=== PATIENT | female | born 1995 | race African-American/Black ===

== ENCOUNTER 2022-08-24 10:16 | Outpatient (CLI) | payer OTHER | END 2022-08-24 10:17 | disposition home or self-care (01) | LOC: CSHULT 10:16 | PROVIDERS: ATTEND Nurse Practitioner Women's Health | DX: Z34.82 Encounter for supervision of other normal pregnancy, second trimester (principal) | CPT/HCPCS: 76805 ==

== ENCOUNTER 2022-12-17 14:56 | Inpatient (IN) | payer OTHER ==
[2022-12-17] MEDS ORDERED: hydrALAZINE 20 MG/ML VIAL SLOW IVP PRN ×2 (16:01→16:22)
[2022-12-17] MEDS ORDERED: Lidocaine 1% (PF) 30 ML VIAL SC PRN (16:20)
[2022-12-17] MEDS ORDERED: Ibuprofen 800 MG TAB PO PRN (16:20)
[2022-12-17] MEDS ORDERED: Ondansetron PF 4 MG/2 ML Vial IVP PRN (16:22)
[2022-12-17] MEDS ORDERED: Misoprostol 200 MCG TAB PR PRN (16:22)
[2022-12-17] MEDS ORDERED: Promethazine HCl 25 MG/ML VIAL IM PRN (16:22)
[2022-12-17] MEDS ORDERED: Carboprost 250 MCG/ML AMP IM PRN (16:22)
[2022-12-17] MEDS ORDERED: Diphenoxylate HCl/Atropine Tablet PO PRN (16:22)
[2022-12-17] MEDS ORDERED: Methylergonovine 0.2 MG/ML VIAL IM PRN (16:22)
[2022-12-17] MEDS ORDERED: Acetaminophen 500 MG TAB PO PRN (16:22)
[2022-12-17] MEDS ORDERED: Tranexamic Acid 1,000 MG/10 ML VIAL IVP PRN (16:22)
[2022-12-17] MEDS ORDERED: Lactated Ringer's 1,000 ML IV SCH (16:30)
[2022-12-17] MEDS ORDERED: NS w/ Oxytocin 30 units 500 ML IV SCH ×2 (16:30)
[2022-12-17] MEDS ORDERED: Penicillin G Potassium 5 MILL.UNITS in Sodium Chloride 0.9% 100 ML IVPB SCH (16:30)
[2022-12-17] MEDS ORDERED: Penicillin G Potassium 5 MILL.UNITS VIAL ONE (17:38)
[2022-12-17 17:43] LABS: Hemoglobin 8.9 g/dL (12.0-15.5); Mean Corpuscular HGB CONC 33.3 g/dL (32.0-36.0); Mean Corpuscular Volume 89.9 fl (81.6-98.3); Mean Platelet Volume 11.5 fl (7.4-10.4); Platelet Count 195 10x3/uL (150-450); RBC Distribution Width 12.5 % (11.5-14.5); Red Blood Cell (RBC) Count 2.97 10x6/uL (3.90-5.03); White Blood Cell (WBC) Count 8.1 10x3/uL (3.5-10.5)
[2022-12-17 18:38] LABS: HBSAg Index 0.19 S/CO (0-0.99); Hep B Surf Ag - L&D Non-Reactive S/CO (NonReactive); Syphilis Antibody Nonreactive (Nonreactive); Syphilis Antibody Index 0.04 S/CO (<1.00 Non-Reactive)
[2022-12-17] MEDS ORDERED: fentaNYL 50 mcg/mL 1 mL Vial SLOW IVP PRN (20:00)
[2022-12-17] MEDS ORDERED: fentaNYL 50 mcg/mL 1 mL Vial ONE (20:04)
[2022-12-17] MEDS ORDERED: Penicillin G 2.5 MILL.units 2.5 MILL.UNITS in Premix Bag 1 BAG IVPB SCH (20:30)
[2022-12-17] MEDS ORDERED: NS w/ Oxytocin 30 units 500 ML ONE (21:33)
[2022-12-17] MEDS ORDERED: Lidocaine 1% (PF) 30 ML VIAL ONE (21:33)
[2022-12-17] MEDS ORDERED: Misoprostol 200 MCG TAB ONE (21:43)
[2022-12-18] MEDS ORDERED: Promethazine HCl 25 MG/ML VIAL IM PRN (00:50)
[2022-12-18] MEDS ORDERED: Boostrix 0.5 ML (Tdap) VIAL (>/=7 yrs of age) IM ONE (00:50)
[2022-12-18] MEDS ORDERED: Bisacodyl 10 MG SUPP PR PRN (00:50)
[2022-12-18] MEDS ORDERED: Ondansetron PF 4 MG/2 ML Vial IVP PRN (00:50)
[2022-12-18] MEDS ORDERED: hydrALAZINE 20 MG/ML VIAL SLOW IVP PRN (00:50)
[2022-12-18] MEDS ORDERED: Benzocaine-Menthol 82.5 ML CAN TOP PRN (00:50)
[2022-12-18] MEDS ORDERED: Lanolin Ointment 7 GM TUBE TOP PRN (00:50)
[2022-12-18] MEDS ORDERED: Milk Of Magnesia 30 ML UDCUP PO PRN (00:50)
[2022-12-18] MEDS: Ibuprofen 800 MG TAB PO SCH ×3 (06:36→21:21)
[2022-12-18] MEDS: Prenatal Vitamin 1 TAB PO SCH (09:16)
[2022-12-18] MEDS: Docusate 100 MG CAP PO SCH ×2 (09:16→21:21)
[2022-12-18] MEDS: Ferrous Sulfate 325 MG TAB PO SCH ×2 (09:16→17:12)
[2022-12-18] MEDS: HYDROcodone/Acetaminophen 5/325 mg Tablet PO PRN (13:18)
[2022-12-19] MEDS: Ibuprofen 800 MG TAB PO SCH (05:36)
[2022-12-19 07:39] VITALS: BP 106/55; TEMP 99
[2022-12-19] MEDS: Ferrous Sulfate 325 MG TAB PO SCH (08:56)
[2022-12-19] MEDS: Docusate 100 MG CAP PO SCH (08:56)
[2022-12-19] MEDS: Prenatal Vitamin 1 TAB PO SCH (08:56)
[2022-12-19] MEDS: HYDROcodone/Acetaminophen 5/325 mg Tablet PO PRN (09:02)
== END 2022-12-19 12:25 | disposition home or self-care (01) | DRG 807 ==
LOC: CSHLD/OP 14:56 → CSHLD 18:04 → CSHPP 12-18 00:20
PROVIDERS: ADMIT Family Medicine; ATTEND Family Medicine
PROC: 10907ZC Drainage of Amniotic Fluid, Therapeutic from Products of Conception, Via Natural or Artificial Opening (ICD-10-PCS; principal; 2022-12-17)
PROC: 10E0XZZ Delivery of Products of Conception, External Approach (ICD-10-PCS; 2022-12-17)
DX: O99.824 Streptococcus B carrier state complicating childbirth (principal); Z37.0 Single live birth; Z3A.37 37 weeks gestation of pregnancy; D64.9 Anemia, unspecified; O99.02 Anemia complicating childbirth; Z79.899 Other long term (current) drug therapy; Z88.1 Allergy status to other antibiotic agents; Z88.8 Allergy status to other drugs, medicaments and biological substances; Z91.09 Other allergy status, other than to drugs and biological substances; O69.81X0 Labor and delivery complicated by cord around neck, without compression, not applicable or unspecified
CPT/HCPCS: 36415; 85027; 86780; 86850; 86900; 86901; 87340; 99285; J2540; J2590; J3010

== ENCOUNTER 2024-06-23 13:23 | Outpatient (CLI) | payer OTHER | END 2024-06-23 13:24 | disposition home or self-care (01) | LOC: CSHULT 13:23 | PROVIDERS: ATTEND Family Medicine | DX: Z34.92 Encounter for supervision of normal pregnancy, unspecified, second trimester (principal); Z3A.21 21 weeks gestation of pregnancy | CPT/HCPCS: 76805 ==